=== PATIENT | male | born 1965 | race Caucasian/White ===

== ENCOUNTER 2017-07-09 23:27 | Emergency (ER) | payer OTHER ==
[2017-07-10 01:12] VITALS: BP 132/75
== END 2017-07-10 01:12 | disposition home or self-care (01) ==
LOC: ED 23:27
DX: K01.1 Impacted teeth (principal); E11.9 Type 2 diabetes mellitus without complications; Z88.2 Allergy status to sulfonamides
CPT/HCPCS: J2270; Q0162

== ENCOUNTER 2018-10-03 13:13 | Emergency (ER) | payer OTHER ==
[~2018-10-03] VITALS: Ht 188 cm; Wt 92.1 kg
[2018-10-03 13:31] VITALS: BP 140/84; Ht 188 cm; Wt 92.1 kg
== END 2018-10-03 14:46 | disposition home or self-care (01) ==
LOC: ED 13:13
DX: L03.211 Cellulitis of face (principal); E11.9 Type 2 diabetes mellitus without complications

== ENCOUNTER 2019-01-21 07:16 | Emergency (ER) | payer OTHER ==
[2019-01-21 07:20] VITALS: Ht 188 cm
[2019-01-21 07:51] VITALS: BP 118/82
== END 2019-01-21 07:51 | disposition home or self-care (01) ==
LOC: ED 07:16
DX: K13.0 Diseases of lips (principal); E11.9 Type 2 diabetes mellitus without complications; Z88.2 Allergy status to sulfonamides
CPT/HCPCS: 90715

== ENCOUNTER 2019-05-03 12:48 | Emergency (ER) | payer OTHER ==
[~2019-05-03] VITALS: Ht 185.4 cm; Wt 93.1 kg
[2019-05-03 12:55] VITALS: BP 119/83; Ht 185.4 cm; Wt 93.1 kg
== END 2019-05-03 14:01 | disposition home or self-care (01) ==
LOC: ED 12:48
DX: M54.6 Pain in thoracic spine (principal); G89.29 Other chronic pain; E11.9 Type 2 diabetes mellitus without complications; Z88.2 Allergy status to sulfonamides
CPT/HCPCS: J1885

== ENCOUNTER 2019-06-12 05:06 | Emergency (ER) | payer OTHER ==
[~2019-06-12] VITALS: Ht 180.3 cm; Wt 91.6 kg
[2019-06-12 05:34] VITALS: Ht 180.3 cm; Wt 91.6 kg
[2019-06-12 06:37] VITALS: BP 129/81
== END 2019-06-12 06:37 | disposition home or self-care (01) ==
LOC: ED 05:06
DX: L02.215 Cutaneous abscess of perineum (principal); E11.65 Type 2 diabetes mellitus with hyperglycemia; Z88.2 Allergy status to sulfonamides
CPT/HCPCS: 82962